=== PATIENT | female | born 1985 ===

== ENCOUNTER 2020-05-16 09:56 | Outpatient (REF) | payer MEDICAID, SELFPAY ==
[2020-05-16 21:41] LABS: Calculated LDL 65 mg/dL (<100); Cholesterol 172 mg/dL (<200); Glucose 90 mg/dL (74-106); HDL Cholesterol 102 mg/dL (40-60); TSH 3.01 uIU/mL (0.36-3.74); Triglyceride 26 mg/dL (<150)
== END 2020-05-16 10:16 ==
LOC: NCHCN 09:56
PROVIDERS: Visit Provider Nurse Practitioner Family
DX: Z13.1 Encounter for screening for diabetes mellitus (principal); Z13.220 Encounter for screening for lipoid disorders; Z13.29 Encounter for screening for other suspected endocrine disorder; N63.11 Unspecified lump in the right breast, upper outer quadrant; Z82.49 Family history of ischemic heart disease and other diseases of the circulatory system; Z00.00 Encounter for general adult medical examination without abnormal findings
CPT/HCPCS: 80061; 82947; 84443

== ENCOUNTER 2021-03-03 16:49 | Outpatient (REF) | payer MEDICAID, SELFPAY ==
[2021-03-03 22:20] LABS: Anion Gap 7.6 mmol/L (3-11); BUN 12 mg/dL (7-18); CO2 27.4 mmol/L (21.0-32.0); CREATININE 0.7 mg/dL (0.55-1.02); Calcium 9.1 mg/dL (8.5-10.1); Chloride 106 mmol/L (98-107); Glucose 89 mg/dL (74-106); Potassium 4.2 mmol/L (3.5-5.1); Sodium 141 mmol/L (136-145)
== END 2021-03-03 16:50 | disposition home or self-care (01) ==
LOC: NCHCN 16:49
PROVIDERS: PCP Nurse Practitioner Family; Visit Provider Nurse Practitioner Family
DX: R31.9 Hematuria, unspecified (principal)
CPT/HCPCS: 80048